=== PATIENT | female | born 1940 | race Two or more races ===

== ENCOUNTER 2016-11-18 01:02 | Inpatient (IN) | payer OTHER ==
[~2016-11-18] VITALS: Ht 167.6 cm; Wt 53.1 kg
--- NOTE | 2016-11-18 01:27 | NUR ---
PT BIB [facility], PT AMBULATORY TO ER BED 1 FOR INCREASED CONFUSION. PT AO TO NAME. RR EVEN AND UNLABORED. NO SOB NOTED. NAD NOTED. NO NVD AT THIS TIME. PT GOWNED AND PLACED ON MONITOR WAITING FOR MD HUGGINS.
--- NOTE | 2016-11-18 01:31 | NUR ---
URINE COLLECTED. LAB AT BEDSIDE FOR BLOOD DRAW.
--- NOTE | 2016-11-18 01:35 | NUR ---
SPOKE WITH LEILA CASTELLANOS, . PT HAS BEEN INCREASING CONFUSED, ASKING REPETATIVE QUESTIONING, FORGETING THINGS X 10 YEARS, GRADUALLY GETTING WORSE. LEILA; [phone]
[2016-11-18 01:47] LABS: BASOPHILS # (AUTO) 0.1 /CMM (0.0-0.2); BASOPHILS % (AUTO) 0.7 % (0.0-2.0); EOSINOPHILS % (AUTO) 0.1 % (0.0-6.0); HEMATOCRIT 43 % (33-45); HEMOGLOBIN 14.3 g/dL (11.5-14.8); LYMPHOCYTES # (AUTO) 1.4 /CMM (0.8-4.8); LYMPHOCYTES % (AUTO) 13.5 % (20.0-44.0); MEAN CORPUSCULAR HEMOGLOBIN 31 PG (26.0-33.0); MEAN CORPUSCULAR HGB CONC 33 g/dl (31.0-36.0); MEAN CORPUSCULAR VOLUME 93 fL (82-100); MONOCYTES # (AUTO) 0.8 /CMM (0.1-1.30); MONOCYTES % (AUTO) 7.6 % (2.0-12.0); NEUTROPHILS # (AUTO) 7.9 /CMM (1.8-8.9); NEUTROPHILS % (AUTO) 78.1 % (43.0-81.0); PLATELET COUNT (AUTO) 319 /CMM (150-450); RED BLOOD CELL COUNT(AUTO) 4.66 MIL/uL (4.0-5.2); WHITE BLOOD COUNT (AUTO) 10.1 K/uL (4.3-11.0)
[2016-11-18 01:50] LABS: APPEARANCE,URINE SL CLOUDY (CLEAR); BILIRUBIN,URINE NEGATIVE (NEGATIVE); BLOOD, URINE 2+ Ery/uL (NEGATIVE); COLOR,URINE YELLOW (YELLOW); KETONES,URINE NEGATIVE (NEGATIVE); LEUKOCYTE ESTERASE ,URINE 1+ (NEGATIVE); NITRITE, URINE POSITIVE (NEGATIVE); PROTEIN,URINE NEGATIVE (NEGATIVE); UGLUCOSE NEGATIVE (NEGATIVE); UROBILINOGEN,URINE 0.2 EU/dL (0.2)
[2016-11-18 01:55] LABS: WBC,URINE 21-50 /HPF (0-3)
[2016-11-18 01:56] LABS: ADD URINE CULTURE YES; BACTERIA,URINE 4+ /HPF (None Seen); MUCUS,URINE Rare /LPF (None Seen); SQUAMOUS EPITHELIAL CELL,UR Few /HPF (None Seen)
[2016-11-18 01:59] LABS: CALCIUM, SERUM 9.8 mg/dL (8.5-10.1); CARBON DIOXIDE 25 mmol/L (21-32); CHLORIDE 100 mmol/L (98-107); CREATININE 1.3 mg/dL (0.6-1.3); GLUCOSE 160 mg/dL (74-106); POTASSIUM 4.1 mmol/L (3.5-5.1); SODIUM SERUM 137 mmol/L (136-145); UREA NITROGEN, BLOOD 15 mg/dL (7-18)
--- NOTE | 2016-11-18 02:05 | NUR ---
CALLED ORAL SURGERY TECHNICIAN FILTER OPERATOR FOR EVAL OF PATIENT
[2016-11-18 02:09] LABS: ACETAMINOPHEN 0 ug/ml (10-30); ALANINE AMINOTRANSFERASE 20 U/L (12-78); ALBUMIN 4.3 g/dL (3.4-5.0); ALCOHOL, BLOOD < 3 mg/dL (0-0); ALKALINE PHOSPHATASE 57 U/L (46-116); ASPARTATE AMINOTRANSFERASE 24 U/L (15-37); BILIRUBIN,DIRECT 0.1 mg/dL (0.0-0.2); BILIRUBIN,TOTAL 0.7 mg/dL (0.2-1.0); SALICYLATE 1.3 mg/dL (2.8-20.0); TOTAL PROTEIN, SERUM 7.9 g/dL (6.4-8.2)
[2016-11-18 02:09] LABS: CANNABINOID, URINE NEGATIVE (NEGATIVE); PHENCYCLIDINE SCREEN,URINE NEGATIVE (NEGATIVE)
[2016-11-18] MEDS ORDERED: NITROFURANTOIN/NITROFURAN MAC 100 MG CAPSULE PO ONE (02:30)
[2016-11-18] MEDS ORDERED: NITROFURANTOIN/NITROFURAN MAC 100 MG CAPSULE ONE (02:33)
--- NOTE | 2016-11-18 03:27 | NUR ---
ART AT BEDSIDE FOR EVAL.
[2016-11-18] MEDS ORDERED: PERP4TAB11 PO (04:33)
[2016-11-18] MEDS ORDERED: CLON0.5T4 PO (04:33)
[2016-11-18] MEDS ORDERED: NORT25CA PO (04:33)
[2016-11-18] MEDS ORDERED: METO25TA6 PO (04:33)
[2016-11-18 05:00] VITALS: BP 101/60
--- NOTE | 2016-11-18 05:00 | NUR ---
PT TRANSFERED TO [facility] VIA W/C
[2016-11-18 05:05] VITALS: BP 101/60
--- NOTE | 2016-11-18 05:05 | NUR ---
GPS ADMISSION NOTE, RECEIVED PATIENT FROM E../ [facility] . PATIENT ARRIVED ON THIS UNIT AT 0505 VIA WHEEL CHAIR WITH 1 HOME CARE SCHEDULER [facility]. PATIENT ADMITTED ON A 5150 HOLD FOR GD. PER HOLD PATIENT IS ALERT X4 BUT IS CONFUSED AT TIMES, DISORGANIZED, AND UNABLE TO RECOGNIZE PALLIATIVE NURSE AT HOME. PATIENT THEN CALLED POLICE AND WAS BROUGHT TO [place]. PATIENT HAS COGNITIVE DECLINE AND IS UNABLE TO PROVIDE SELF CARE AT HOME GIVEN HER CURRENT MENTAL STATE. THE 5150 WAS REVIEWED AND THE DOCUMENTATION IN THE 5150 HOLD APPEARS TO REFLECT THE PRESENTATION OF THE PATIENT. UPON FACE TO FACE ASSESSMENT PATIENT IS CURRENTLY LYING IN BED AWAKE, HAS NO S/S OR COMPLAINTS OF PAIN. PATIENT IS DISPLAYING NO S/S OF APPARENT DISTRESS. PATIENT BREATHING IS UNLABORED WITH EQUAL RISE AND FALL OF THE CHEST. PATIENT IS ALERT AND ORIENTATED X 4 ON ROOM AIR. PATIENT ASSISTED WITH TURING AND REPOSITIONING Q2HR AND PRN FOR COMFORT AND CIRCULATION. PATIENT HAS NO NEEDS AT THIS TIME. PATIENT IS NOTED TO BEING WITHDRAWN, DEPRESSED, DISORGANIZED, COOPERATIVE, AND NEEDS REDIRECTION. PATIENT DENIES SUICIDE IDEATIONS AND HOMICIDAL IDEATIONS AT THIS TIME. PATIENT IS UNDER THE PSYCHIATRIC CARE OF DR. CHANG AND THE MEDICAL CARE OF DR HANH COLUNGA. PATIENT BELONGINGS WERE INVENTORIED AND CHECKED FOR CONTRABAND. ALL CONTRABAND REMOVED AND STORED IN PATIENT HALLWAY LOCKER. PATIENT ADVANCED DIRECTIVES PREFERENCE, IMMUNIZATIONS QUESTIONER, NECESSARY PAPERWORK, AND SKIN ASSESSMENT COMPLETED. PATIENT ORIENTATED TO ROOM, FLOOR, AND STAFF WITH ALL QUESTIONS ANSWERED. PATIENT EDUCATED ON THE USE OF THE CALL RODRIGUEZ. PATIENT BED SIDE RAILS ARE UP X 2 FOR SAFETY. PATIENT BED IS LOCKED, LOW AND I WILL CONTINUE TO MONITOR THIS PATIENT Q 15 MIN WITH THE HELP OF STAFF TO MAINTAIN SAFETY.
[2016-11-18] MEDS ORDERED: LORAZEPAM 0.5 MG TABLET PO PRN (05:30)
[2016-11-18] MEDS ORDERED: MAG HYDROX/AL HYDROX/SIMETH 30 ML UDC PO PRN (05:30)
[2016-11-18] MEDS ORDERED: TEMAZEPAM 7.5 MG CAPSULE PO PRN (05:30)
[2016-11-18] MEDS ORDERED: ACETAMINOPHEN 325 MG TABLET PO PRN (05:30)
[2016-11-18] MEDS ORDERED: MAGNESIUM HYDROXIDE 30 ML UDC PO PRN (05:30)
--- NOTE | 2016-11-18 06:18 | NUR ---
RN NOTES INFORMED HANH COLUNGA OF PATIENT'S ADMISSION, MED RECON.
[2016-11-18 08:00] VITALS: BP 113/64
[2016-11-18 08:04] LABS: CREATININE 1.1 mg/dL (0.6-1.3)
[2016-11-18] MEDS: NITROFURANTOIN/NITROFURAN MAC 100 MG CAPSULE PO SCH ×2 (12:30→16:32)
[2016-11-18 16:08] VITALS: BP 107/63
[2016-11-18] MEDS: METOPROLOL TARTRATE 25 MG TABLET PO SCH (16:33)
[2016-11-18] MEDS: DIVALPROEX SODIUM 250 MG TABLET.DR PO SCH (21:28)
[2016-11-18 22:03] VITALS: BP 99/60
[2016-11-19 08:08] VITALS: BP 108/58
[2016-11-19] MEDS: METOPROLOL TARTRATE 25 MG TABLET PO SCH ×2 (10:01→17:00)
[2016-11-19] MEDS: NITROFURANTOIN/NITROFURAN MAC 100 MG CAPSULE PO SCH ×2 (10:01→18:27)
[2016-11-19] MEDS: DIVALPROEX SODIUM 250 MG TABLET.DR PO SCH ×2 (10:01→21:40)
--- NOTE | 2016-11-19 13:54 | NUR ---
Initial discharge plan: Pt. lives at home with her and a caregiver at [address] [place], [place] [id number] and would like to return upon discharge. CARL will talk to pt's , as he is unavailable at this time to confirm discharge plan. CARL will follow up with MD and family and will help form a safe and proper discharge. Addendum: 11/20/16 at 0925 by GONZALO HENRY CARL received a voicemail from Cherie('s friend who was taking care of the patient) [phone] who stated that pt. is not able to go home to an empty house as the is out of town for work and she lives in [place]. She requested a call back so she can tell the social media marketing specialist more about the patient. CARL will follow up
--- NOTE | 2016-11-19 15:03 | NUR ---
UR update: faxed clinicals to [facility] to [phone] phone [phone]. Will follow up
[2016-11-19 16:00] VITALS: BP 104/63
[2016-11-19 20:24] VITALS: BP 100/62
[2016-11-20 08:00] VITALS: BP 110/63
[2016-11-20] MEDS: DIVALPROEX SODIUM 250 MG TABLET.DR PO SCH ×2 (08:49→20:35)
[2016-11-20] MEDS: NITROFURANTOIN/NITROFURAN MAC 100 MG CAPSULE PO SCH ×2 (08:49→16:57)
[2016-11-20] MEDS: METOPROLOL TARTRATE 25 MG TABLET PO SCH ×2 (08:49→16:57)
--- NOTE | 2016-11-20 13:39 | NUR ---
UR update: faxed clinicals to [facility] to [phone] phone [phone]. Will follow up
[2016-11-20 16:00] VITALS: BP 110/56
[2016-11-20 20:00] VITALS: BP 104/63
[2016-11-21 08:00] VITALS: BP 116/56
[2016-11-21] MEDS: DIVALPROEX SODIUM 250 MG TABLET.DR PO SCH ×2 (08:30→21:00)
[2016-11-21] MEDS: METOPROLOL TARTRATE 25 MG TABLET PO SCH ×2 (08:30→17:24)
[2016-11-21] MEDS: NITROFURANTOIN/NITROFURAN MAC 100 MG CAPSULE PO SCH ×2 (08:30→17:22)
--- NOTE | 2016-11-21 10:07 | NUR ---
CARL spoke with Cherie('s friend who was taking care of the patient) [phone] and she understands that at this point when pt. is stable and ready for discharge she needs to be picked up as she is refusing to be placed in a facility and wants to return home. Pt. is alert and oriented and is able to make her own decisions. Possible discharge will be Thursday or Thursday.
--- NOTE | 2016-11-21 10:07 | NUR ---
UR update: faxed clinicals to [facility] to [phone] phone [phone]. Will follow up
--- NOTE | 2016-11-21 15:09 | NUR ---
UR update: CARL spoke with Carmella from [facility] [phone] regarding pt's stay and discharge on Thursday. She discussed it with her team and agreed to discharge the patient on Thursday. CARL notified caregiver, Cherie [phone]
[2016-11-21 16:00] VITALS: BP 127/67
[2016-11-21 20:00] VITALS: BP 100/52
[2016-11-22 08:11] VITALS: BP 102/65
[2016-11-22] MEDS: NITROFURANTOIN/NITROFURAN MAC 100 MG CAPSULE PO SCH ×2 (08:28→16:40)
[2016-11-22] MEDS: METOPROLOL TARTRATE 25 MG TABLET PO SCH ×2 (08:28→16:41)
[2016-11-22] MEDS: DIVALPROEX SODIUM 250 MG TABLET.DR PO SCH ×2 (08:28→21:49)
[2016-11-22] MEDS ORDERED: DEXTROSE 50%-WATER 50 ML DISP.SYRIN IV PRN (12:00)
[2016-11-22] MEDS: BLOOD SUGAR DIAGNOSTIC 1 EACH STRIP IN SCH ×3 (12:07→22:42)
[2016-11-22 16:00] VITALS: BP 108/88
[2016-11-22 20:00] VITALS: BP 106/57
--- NOTE | 2016-11-22 20:00 | NUR ---
GPS/ACADEMIC INTERN; RECEIVED PT IN BED AWAKE, ALERT AND TALKING TO HER ROOM MATE AT THIS TIME. DENIES ANY PAIN. BREATHING NON LABORED. NO AGGRESSION NOTED. BED ON LOWER POSITION AND LOCKED FOR SAFETY. SIDE RAILS ARE UP FOR SAFETY. WILL CONTINUE TO MONITOR.
--- NOTE | 2016-11-22 22:00 | NUR ---
GPS/SEAT COVERER; BS 103 NO COVERAGE .
--- NOTE | 2016-11-23 06:42 | NUR ---
GPS/SECURITY ANALYST; PT CONTINENT AND GOES TO THE BATHROOM BY HERSELF. SLEPT FOR 7 HOURS LAST NIGHT. PT WAS CALM AND FOLLOWS COMMAND LAST NIGHT . WILL ENDORSE TO THE DAY SHIFT NURSE.
[2016-11-23 08:00] VITALS: BP 118/63
[2016-11-23] MEDS: BLOOD SUGAR DIAGNOSTIC 1 EACH STRIP IN SCH ×4 (08:56→21:40)
[2016-11-23] MEDS: METOPROLOL TARTRATE 25 MG TABLET PO SCH ×2 (08:58→17:00)
[2016-11-23] MEDS: NITROFURANTOIN/NITROFURAN MAC 100 MG CAPSULE PO SCH (08:58)
[2016-11-23] MEDS: DIVALPROEX SODIUM 250 MG TABLET.DR PO SCH ×2 (08:58→21:40)
[2016-11-23 16:00] VITALS: BP 108/59
[2016-11-23 20:07] VITALS: BP 103/57
[2016-11-24] VITALS (7 sets, daily range): BP systolic 87–102; BP diastolic 39–59
--- NOTE | 2016-11-24 00:32 | NUR ---
Pt has been with depressed mood but compliant with care w/o any promptings.
--- NOTE | 2016-11-24 00:50 | NUR ---
Pt's blood sugar level last night was 109 mg/dl & no Insulin was given as ordered by MD.
[2016-11-24] MEDS: BLOOD SUGAR DIAGNOSTIC 1 EACH STRIP IN SCH ×4 (08:16→21:43)
[2016-11-24] MEDS: DIVALPROEX SODIUM 250 MG TABLET.DR PO SCH ×2 (08:16→21:00)
[2016-11-24] MEDS: METOPROLOL TARTRATE 25 MG TABLET PO SCH ×3 (08:17→17:00)
--- NOTE | 2016-11-24 08:17 | NUR ---
[id number]: BLOOD PRESSURE IS 101/50 AND PULSE IS 78. NOT ADMINISTER METOPROLOL 25 MG PO
[2016-11-24] MEDS: INSULIN REGULAR, HUMAN 100 UNIT/ML 3 ML VIAL SQ PRN ×2 (12:08→21:44)
[2016-11-24 13:09] LABS: BASOPHILS % (AUTO) 0.1 % (0.0-2.0); HEMATOCRIT 38 % (33-45); HEMOGLOBIN 12.8 g/dL (11.5-14.8); LYMPHOCYTES # (AUTO) 0.8 /CMM (0.8-4.8); LYMPHOCYTES % (AUTO) 7.4 % (20.0-44.0); MEAN CORPUSCULAR HEMOGLOBIN 31 PG (26.0-33.0); MEAN CORPUSCULAR HGB CONC 33 g/dl (31.0-36.0); MEAN CORPUSCULAR VOLUME 92 fL (82-100); MONOCYTES # (AUTO) 0.4 /CMM (0.1-1.30); MONOCYTES % (AUTO) 4.3 % (2.0-12.0); NEUTROPHILS # (AUTO) 9.1 /CMM (1.8-8.9); NEUTROPHILS % (AUTO) 88.2 % (43.0-81.0); PLATELET COUNT (AUTO) 260 /CMM (150-450); RDW COEFFICIENT OF VARIATION 13.1 (11.5-15.0); RED BLOOD CELL COUNT(AUTO) 4.15 MIL/uL (4.0-5.2); WHITE BLOOD COUNT (AUTO) 10.3 K/uL (4.3-11.0)
[2016-11-24 13:17] LABS: CALCIUM, SERUM 8.6 mg/dL (8.5-10.1); CARBON DIOXIDE 27 mmol/L (21-32); CHLORIDE 93 mmol/L (98-107); GLUCOSE 140 mg/dL (74-106); POTASSIUM 3.7 mmol/L (3.5-5.1); SODIUM SERUM 128 mmol/L (136-145); UREA NITROGEN, BLOOD 23 mg/dL (7-18)
[2016-11-24 13:23] LABS: ALANINE AMINOTRANSFERASE 8 U/L (12-78); ALBUMIN 3.4 g/dL (3.4-5.0); ALKALINE PHOSPHATASE 49 U/L (46-116); ASPARTATE AMINOTRANSFERASE 18 U/L (15-37); BILIRUBIN,DIRECT 0.1 mg/dL (0.0-0.2); BILIRUBIN,TOTAL 0.6 mg/dL (0.2-1.0); MAGNESIUM 1.9 mg/dL (1.8-2.4); TOTAL PROTEIN, SERUM 6.5 g/dL (6.4-8.2)
[2016-11-24 13:25] LABS: TROPONIN I < 0.017 ng/mL (0.00-0.056)
[2016-11-24] MEDS ORDERED: IV NS 0.9% 500 ML IV ONE (14:00)
[2016-11-24] MEDS ORDERED: IV NS 0.9% 1,000 ML IV PRN (14:00)
[2016-11-24] MEDS ORDERED: ONDANSETRON 4 MG TAB.RAPDIS PO PRN (14:00)
--- NOTE | 2016-11-24 14:38 | NUR ---
UR update: CARL spoke with Hari from [facility] [phone] regarding pt's need to stay one more night and Hari agreed to authorize. Pt's , Fabian Schroeder [phone] home [phone] was notified of the change and will pick her up tomorrow after 3:30PM.
--- NOTE | 2016-11-24 19:07 | NUR ---
GPS/RN NOTE: PATIENT RESTING, COMFORTABLE, IN BED WITH NO APPARENT DISTRESS NOTED. PEACEFUL AND QUIET, RESPONSIVE WHEN ENGAGED.
--- NOTE | 2016-11-24 20:42 | NUR ---
GPS/RN NOTE: BP NOW 90/41, HR 91 BPM. NO ACUTE DISTRESS NOTED. ASYMPTOMATIC.
--- NOTE | 2016-11-24 21:37 | NUR ---
GPS/RN NOTE: REFUSED DEPAKOTE 250 MG PO FOR HER NIGHT MEDS. EXPLAINED X2, STILL REFUSED.
--- NOTE | 2016-11-24 21:45 | NUR ---
GPS/RN NOTE: ACCUCHECK 180 MG/DL, 3 UNITS REGULAR INSULIN SC ADMINISTERED. HS SNACKS GIVEN.
--- NOTE | 2016-11-25 07:29 | NUR ---
[id number]: BLOOD SUGAR IS 112 MG/DL AND NO INSULIN REQUIRED.
[2016-11-25] MEDS: BLOOD SUGAR DIAGNOSTIC 1 EACH STRIP IN SCH ×2 (08:00→12:07)
[2016-11-25] MEDS: DIVALPROEX SODIUM 250 MG TABLET.DR PO SCH (08:01)
[2016-11-25] MEDS: METOPROLOL TARTRATE 25 MG TABLET PO SCH (08:01)
[2016-11-25 08:16] VITALS: BP 112/57
--- NOTE | 2016-11-25 15:30 | NUR ---
[id number]: PT IS 76 YEARS OLD FEMALE DISCHARGE TO HOME AT [address] [place] [address]. [phone] IN STABLE CONDITION. COMPLIANT WITH MEDICATIONS, COOPERATIVE WITH TREATMENT PLANS. PT DENIES SI/HI AND INSTRUCTED TO GO TO THE CLOSEST ER IF DEVELOPING SI/HI. BEHAVIOR IMPROVED, PSYCHIATRIC TX PLANS MET, MEDICAL TX PLANS DEFERRED FOR CONTINUAL MONITORING. EDUCATED PT ABOUT AFTER CARE PLAN AND COPY PROVIDED. RETURNED PERSONAL BELONGINGS TO PT. MEDICATIONS RECONCILED WITH DR. DUMONT AND DR. CHANG. REPORT GIVEN TO FOR CONTINUITY OF CARE. PT SIGNED DISCHARGE PAPERWORK. SKIN ASSESSMENT DONE. PT LEFT THE UNIT ESCORTED BY STAFF AND VIA PRIVATE CAR
--- NOTE | 2016-11-26 10:01 | NUR ---
Discharge note: discharged back home with a caregiver Cherie and with her Fabian [phone] [place] [id number] Caregiver, Cherie [phone] and were notified and they both agreed with the discharge plan. , Fabian picked up the patient via private car. Pt. was provided with discharge instructions, she was calm and cooperative and denies having suicidal/homicidal ideations. Pt's was provided with resources to [facility] [address] [facility] [address], [place] [address] and also notified insurance that pt. does not have a primary psychiatrist and per Carmella from [facility] [phone], Nadeen will arrange and contact the for details. was provided with all this information and CARL was notified that pt. has a caregiver at home who will be able to check pt's blood pressure and do her Accu-checks. CARL faxed a home health order to [facility] [phone] fax [phone] for follow up. Discharge paperwork has been signed.
--- NOTE | 2016-11-26 10:23 | NUR ---
UR update: faxed discharge information to [facility] to [phone] phone [phone].
== END 2016-11-25 15:30 | disposition home or self-care (01) | DRG 885 ==
LOC: ER 01:03 → GPS 04:08
PROVIDERS: ADMIT Psychiatry & Neurology Psychiatry; ATTEND Nurse Practitioner Acute Care
DX: F39 Unspecified mood [affective] disorder (principal); N39.0 Urinary tract infection, site not specified; F03.91 Unspecified dementia, unspecified severity, with behavioral disturbance; F29 Unspecified psychosis not due to a substance or known physiological condition; F32.9 Major depressive disorder, single episode, unspecified; F41.9 Anxiety disorder, unspecified; I10 Essential (primary) hypertension; Z87.891 Personal history of nicotine dependence; Z73.6 Limitation of activities due to disability; B96.1 Klebsiella pneumoniae [K. pneumoniae] as the cause of diseases classified elsewhere; E11.9 Type 2 diabetes mellitus without complications
CPT/HCPCS: 36415; 80048-TC; 80061-TC; 80076-TC; 80305; 81000-TC; 82565-TC; 82962-TC; 83735-TC; 84484-TC; 85025-TC; 87081-TC; 87086-TC; 87186-TC; A4606; G0480; G6039-TC; J1815; J7040; Z7610